=== PATIENT | female | born 1945 | race Caucasian/White ===

== ENCOUNTER → 2017-02-08 | Outpatient (CLI) | payer BC ==
[~2017-02-08] MED LIST: ACID CONTROLLER20 MG PO; ALBUTEROL0.63 MG/3 INH; COREG 25MG TAB25 MG PO; DOXYCYCLINE HY100 MG PO; DULERA 200 MCG8.8 GM INH; KLONOPIN TAB 00.5 MG PO; LIPITOR TAB 2020 MG PO; MEDROL DOSEPAK 24 MG PO; NORVASC 5 MG TAB5 MG PO; PROAIR HFA8.5 GM INH; SYMBICORT 16010.2 GM INH; TESSALON PERLE100 MG PO; XANAX0.5 MG PO
== END ==
LOC: HEART 5 16:12
DX: R09.02 Hypoxemia (principal); F17.210 Nicotine dependence, cigarettes, uncomplicated; R94.2 Abnormal results of pulmonary function studies
CPT/HCPCS: 94060; 94729

== ENCOUNTER 2017-02-10 11:23 | Emergency (ER) | payer BC ==
[2017-02-10 13:03] LABS: HEMOGLOBIN 13.1 gm/dl (12.3-15.3); RED BLOOD COUNT 4.45 M/UL (4.00-5.10); WHITE BLOOD COUNT 4.5 K/UL (4.5-11.0)
== END 2017-02-10 15:44 | disposition home or self-care (01) ==
LOC: ER1 11:23
PROVIDERS: Physician Assistant
DX: J44.1 Chronic obstructive pulmonary disease with (acute) exacerbation (principal); I25.10 Atherosclerotic heart disease of native coronary artery without angina pectoris; I25.2 Old myocardial infarction; I10 Essential (primary) hypertension; Z87.891 Personal history of nicotine dependence; Z88.0 Allergy status to penicillin
CPT/HCPCS: 36415; 71010; 78582; 80053; 82550; 82553; 82803; 83874; 83880; 84484; 85025; 85379; 87040; 93005; 94640; 94664; 96374; 99285; A9540; A9567; J2930